=== PATIENT | female | born 1985 | race Caucasian/White ===

== ENCOUNTER 2018-04-07 17:14 | Emergency (ER) | payer OTHER ==
[2018-04-07] MEDS ORDERED: ONDANSETRON 4 MG/2 ML VIAL IVP ONE (17:25)
[2018-04-07] MEDS ORDERED: NS 1,000 ML IV ONE ×2 (17:25)
[2018-04-07] MEDS ORDERED: ONDANSETRON 4MG PREPACK#2 BTL TAKEHOME ONE (17:26)
--- NOTE | 2018-04-07 17:28 | EDPHY ---
H & P Time Seen by Provider: 04/07/18 17:20 HPI/ROS: CHIEF COMPLAINT: Nausea vomiting diarrhea HISTORY OF PRESENT ILLNESS: Since midnight multiple symptoms. Vomiting 5 times , several episodes of loose stool. No blood or mucus in the stool. No blood in the emesis. Symptoms severe, worse with trying to eat or drink anything. Patient did have episode of syncope or near-syncope with such episode of vomiting. This is just like when she had morning sickness while , she would have syncope or near-syncope every time she had vomiting. REVIEW OF SYSTEMS: Eye: no change in vision ENT: no sore throat Cardiac: No chest pain Pulmonary: no cough or SOB Abdomen: HPI Musculoskeletal: no back pain Skin: no rash Neuro: no headache Constitutional: Subjective fever chills : no urinary symptoms A comprehensive 10 point review of systems is otherwise negative aside from elements mentioned in the history of present illness. PAST MEDICAL HISTORY: Includes ankle surgery orthopedic, appendectomy, cholecystectomy. Denies . Social history: Has a [id number]-hh[employer], no alcohol. No recent foreign travel. General Appearance: Alert and conversant, cooperative. Eyes: No scleral icterus. ENT, Mouth: Dry mucous membranes. Respiratory: Normal respiratory effort, breath sounds equal, lungs are clear to auscultation. Cardiovascular: Regular rate and rhythm. Gastrointestinal: Abdomen is soft and non tender. Specifically no rebound or guarding. Neurological: Alert, face symmetric, normal motor and sensory in extremities. Skin: Warm and dry, no rashes. Musculoskeletal: No peripheral edema. Psychiatric: Not agitated. Emergency Department course/MDM: Patient presents with symptoms of gastroenteritis and dehydration. Clinically unlikely to have cholecystitis or appendicitis, bowel obstruction, ectopic , GI bleed. Zofran 4 mg IV, 2 L IV normal saline. No labs unless patient does not improve, discussed with patient and consented. 1840: Feels better, no nausea, taking oral fluids. Labs discussed. Smoking Status: Never smoked Constitutional: Initial Vital Signs Temperature (C) 36.8 C 04/07/18 17:17 Heart Rate 103 H 04/07/18 17:17 Respiratory Rate 18 04/07/18 17:17 Blood Pressure 136/88 H 04/07/18 17:17 O2 Sat (%) 94 04/07/18 17:17 O2 Delivery Mode Room Air Allergies/Adverse Reactions: No Known Allergies Allergy (Unverified 07/16/15 08:23) Home Medications: Medication Instructions Recorded NK [No Known Home Meds] 04/07/18 Medical Decision Making - Data Points Laboratory Results: Laboratory Results 04/07/18 17:58 04/07/18 17:58 04/07/18 04/07/18 04/07/18 17:58 17:58 17:58 WBC 7.17 10^3/uL 10^3/uL (3.80-9.50) RBC 4.42 10^6/uL 10^6/uL (4.18-5.33) Hgb 13.3 g/dL g/dL (12.6-16.3) Hct 39.6 % % (38.0-47.0) MCV 89.6 fL fL (81.5-99.8) MCH 30.1 pg pg (27.9-34.1) MCHC 33.6 g/dL g/dL (32.4-36.7) RDW 12.1 % % (11.5-15.2) Plt Count 278 10^3/uL 10^3/uL (150-400) MPV 9.7 fL fL (8.7-11.7) Neut % (Auto) 75.6 % H % (39.3-74.2) Lymph % (Auto) 13.4 % L % (15.0-45.0) [place] % (Auto) 9.5 % % (4.5-13.0) Eos % (Auto) 0.6 % % (0.6-7.6) Baso % (Auto) 0.6 % % (0.3-1.7) Nucleat RBC Rel Count 0.0 % % (0.0-0.2) Absolute Neuts (auto) 5.43 10^3/uL 10^3/uL (1.70-6.50) Absolute Lymphs (auto) 0.96 10^3/uL L 10^3/uL (1.00-3.00) Absolute Monos (auto) 0.68 10^3/uL 10^3/uL (0.30-0.80) Absolute Eos (auto) 0.04 10^3/uL 10^3/uL (0.03-0.40) Absolute Basos (auto) 0.04 10^3/uL 10^3/uL (0.02-0.10) Absolute Nucleated RBC 0.00 10^3/uL 10^3/uL (0-0.01) Immature Gran % 0.3 % % (0.0-1.1) Immature Gran # 0.02 10^3/uL 10^3/uL (0.00-0.10) Sodium 136 mEq/L mEq/L (135-145) Potassium 3.4 mEq/L L mEq/L (3.5-5.2) Chloride 110 mEq/L mEq/L (97-110) Carbon Dioxide 22 mEq/l mEq/l (22-31) Anion Gap 4 mEq/L L mEq/L (6-14) BUN 11 mg/dL mg/dL (7-23) Creatinine 0.7 mg/dL mg/dL (0.6-1.0) Estimated GFR > 60 Glucose 100 mg/dL mg/dL (70-100) Calcium 7.4 mg/dL L mg/dL (8.5-10.4) Beta HCG, Qual NEGATIVE Medications Given: Discontinued Medications Sodium Chloride (Ns) 1,000 mls @ 0 mls/hr IV EDNOW ONE; Wide Open PRN Reason: Protocol Stop: 04/07/18 17:26 Last Admin: 04/07/18 17:34 Dose: 1,000 mls Sodium Chloride (Ns) 1,000 mls @ 0 mls/hr IV EDNOW ONE; Wide Open PRN Reason: Protocol Stop: 04/07/18 17:26 Last Admin: 04/07/18 17:34 Dose: 1,000 mls Ondansetron HCl (Zofran) 4 mg IVP EDNOW ONE Stop: 04/07/18 17:26 Last Admin: 04/07/18 17:34 Dose: 4 mg Ondansetron HCl (Zofran Odt 4 Mg Prepack#2) 1 btl TAKEHOME EDNOW ONE Stop: 04/07/18 17:27 Last Admin: 04/07/18 17:36 Dose: 1 btl Departure - Departure Disposition: Home, Routine, Self-Care Clinical Impression: Dehydration Nausea & vomiting Qualifiers: Vomiting type: unspecified Vomiting Intractability: non-intractable Qualified Code(s): R11.2 - Nausea with vomiting, unspecified Condition: Good Instructions: Dehydration (ED), Acute Nausea and Vomiting (ED) Additional Instructions: your calcium was slightly low at 7.4; please followup at [facility] in the next 2 weeks Referrals: Anju Jasso PA [Primary Care Provider] - As per Instructions
[2018-04-07 18:12] LABS: PLATELET COUNT 278 10^3/uL (150-400)
[2018-04-07 18:53] VITALS: BP 133/88
== END 2018-04-07 18:53 | disposition home or self-care (01) ==
DX: E86.0 Dehydration (principal); R11.2 Nausea with vomiting, unspecified
CPT/HCPCS: 96374; J2405

== ENCOUNTER 2018-09-21 08:40 | Inpatient (IN) | payer OTHER | END 2018-09-23 12:27 | disposition home or self-care (01) | LOC: F2W 11:05 ==